=== PATIENT | female | born 1975 | race Caucasian/White ===

== ENCOUNTER 2021-10-09 06:17 | Day surgery (SDC) | payer BC ==
[~2021-10-09 06:17] MED LIST: Albuterol 0.083% 2.5 MG/3 ML Neb Soln NEB PRN; HYDROmorphone 1 MG/ML Syringe IVPUSH PRN; Metoclopramide 10 MG/2 ML SDV IVPUSH PRN; Morphine 4 MG/ML VIAL IVPUSH PRN; Naloxone 0.4 MG/ML SDV IVPUSH PRN; Ondansetron 4 MG/2 ML SDV IVPUSH PRN; Scopolamine 1.5 MG Transdermal Patch TRDERM ONE
[2021-10-09] MEDS ORDERED: Scopolamine 1.5 MG Transdermal Patch ONE (06:58)
[2021-10-09] MEDS ORDERED: Lactated Ringers 1,000 ML IV SCH (07:00)
[2021-10-09] MEDS ORDERED: Ondansetron 4 MG/2 ML SDV ONE (07:06)
[2021-10-09] MEDS ORDERED: Midazolam 1 MG/ML 2 ML SDV ONE (07:06)
[2021-10-09] MEDS ORDERED: fentaNYL 100 MCG/2 ML SDV ONE (07:06)
[2021-10-09] MEDS ORDERED: Rocuronium Bromide 50 MG/5 ML Syringe ONE (07:07)
[2021-10-09] MEDS ORDERED: Glycopyrrolate 0.2 MG/ML SDV ONE (07:07)
[2021-10-09] MEDS ORDERED: Dexamethasone 4 MG/ML 5 ML MDV ONE (07:07)
[2021-10-09] MEDS ORDERED: Ketorolac 30 MG/ML SDV ONE (07:07)
[2021-10-09] MEDS ORDERED: propofoL 100 ML ONE ×2 (07:07→10:13)
[2021-10-09] MEDS ORDERED: ceFAZolin 1 GM Vial ONE (07:08)
[2021-10-09] MEDS ORDERED: Water For Injection, Sterile 20 ML ONE (07:08)
[2021-10-09 07:22] LABS: BLOOD UREA NITROGEN,BUN 15 mg/dL (7.0-18.0); CARBON DIOXIDE,CO2 25.4 mmol/L (21.0-32.0); CHLORIDE,CL 104 mmol/L (98-107); GLUCOSE RANDOM 108 mg/dL (74-106); POTASSIUM,K 3.9 mmol/L (3.5-5.1); SODIUM,NA 141 mmol/L (136-145)
[2021-10-09] MEDS ORDERED: Methylene Blue 50 MG/10 ML Ampule ONE (07:36)
[2021-10-09] MEDS ORDERED: Bupivacaine 0.25% 10 ML SDV ONE ×2 (07:36→08:42)
[2021-10-09] MEDS ORDERED: Fluorescein 5 ML Vial ONE (07:36)
[2021-10-09] MEDS ORDERED: Morphine 4 MG/ML VIAL ONE ×2 (08:18→09:41)
[2021-10-09] MEDS ORDERED: ePHEDrine 50 MG/ML SDV ONE (08:37)
[2021-10-09] MEDS ORDERED: Propofol 200 MG/20 ML SDV ONE (09:32)
[2021-10-09] MEDS ORDERED: Furosemide 40 MG/4 ML VIAL ONE (10:22)
[2021-10-09] MEDS ORDERED: Albumin 5% 0 ML ONE (10:25)
[2021-10-09] MEDS ORDERED: Calcium Chloride 10% 1 GM/10 ML Syringe ONE (10:45)
[2021-10-09] MEDS ORDERED: Octyl 2-Cyanoacrylate 1 Tube ONE (11:02)
[2021-10-09] MEDS ORDERED: Ketorolac 30 MG/ML SDV IVPUSH PRN (11:20)
[2021-10-09] MEDS ORDERED: Morphine 4 MG/ML VIAL IVPUSH PRN (11:20)
[2021-10-09] MEDS ORDERED: Ondansetron 4 MG/2 ML SDV IVPUSH PRN (11:20)
[2021-10-09] MEDS: fentaNYL 100 MCG/2 ML SDV IVPUSH PRN ×2 (12:08→12:23)
[2021-10-09 12:57] LABS: BLOOD UREA NITROGEN,BUN 13 mg/dL (7.0-18.0); CARBON DIOXIDE,CO2 22.8 mmol/L (21.0-32.0); CHLORIDE,CL 107 mmol/L (98-107); GLUCOSE RANDOM 145 mg/dL (74-106); POTASSIUM,K 3.8 mmol/L (3.5-5.1); SODIUM,NA 141 mmol/L (136-145)
[2021-10-09] MEDS: Acetaminophen/oxyCODONE 325-5 MG Tab PO PRN ×3 (13:00→23:30)
[2021-10-10] MEDS: Acetaminophen/oxyCODONE 325-5 MG Tab PO PRN ×2 (05:14→09:34)
[2021-10-10 07:00] LABS: BLOOD UREA NITROGEN,BUN 11 mg/dL (7.0-18.0); CARBON DIOXIDE,CO2 24.9 mmol/L (21.0-32.0); CHLORIDE,CL 106 mmol/L (98-107); GLUCOSE RANDOM 116 mg/dL (74-106); POTASSIUM,K 4.1 mmol/L (3.5-5.1); SODIUM,NA 138 mmol/L (136-145)
[2021-10-10] MEDS ORDERED: Levothyroxine 112 MCG Tab PO SCH (07:30)
== END 2021-10-10 10:45 | disposition home or self-care (01) ==
LOC: MW.SDS 06:17 → MW.MS 11:55 → MW.SDS 10-10 10:45
PROVIDERS: ATTEND Obstetrics & Gynecology
DX: N72 Inflammatory disease of cervix uteri (principal); E66.01 Morbid (severe) obesity due to excess calories; I10 Essential (primary) hypertension; E78.00 Pure hypercholesterolemia, unspecified; E66.9 Obesity, unspecified; Z90.49 Acquired absence of other specified parts of digestive tract; Z98.890 Other specified postprocedural states; Z87.891 Personal history of nicotine dependence; Z79.899 Other long term (current) drug therapy; Z88.2 Allergy status to sulfonamides; Z88.1 Allergy status to other antibiotic agents; Z01.812 Encounter for preprocedural laboratory examination; Z20.822 Contact with and (suspected) exposure to COVID-19
CPT/HCPCS: 36415; 36430; 58552; 80053; 81025; 85025; 85027; 85384; 85610; 85730; 86850; 86900; 86901; 86920; 87635; A9270; J0131; J0690; J1100; J1940; J2250; J2704; J3010; J3490; J7030; J7120; P9016; 00944; J1885; J2270; J2405; P9045; U0002